=== PATIENT | female | born 2000 | race Caucasian/White ===

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

== ENCOUNTER 2022-02-08 22:00 | Outpatient (CLI) | payer MEDICAID, SELFPAY ==
[2022-02-08 22:16] VITALS: BP 126/71; PULSE 93; TEMP 36.2; O2SAT 97
[2022-02-08 22:21] VITALS: BMI 30.9
--- NOTE | 2022-02-12 19:20 | OB.TRI.PN ---
Progress Notes Progress Note: 21 year old female at 36w3d presents for vaginal bleeding. Assessment & Plan (1) Vaginal bleeding: (2) False labor: PLAN: Plan 1) No signs of labor 2) Reactive NST 3) D/C home
== END 2022-02-08 22:45 | disposition home or self-care (01) ==
LOC: WPOUT 22:01 → WP 22:02
PROVIDERS: PCP Pediatrics; Visit Provider Advanced Practice Midwife
DX: O47.03 False labor before 37 completed weeks of gestation, third trimester (principal); Z3A.36 36 weeks gestation of pregnancy; O46.93 Antepartum hemorrhage, unspecified, third trimester
CPT/HCPCS: 59025; 59050; 99218; G0378

== ENCOUNTER 2022-02-12 09:15 | Inpatient (IN) | payer MEDICAID, SELFPAY ==
[2022-02-12] VITALS (82 sets, daily range): BP systolic 109–146; BP diastolic 55–86; PULSE 70–193; RESP 16; TEMP 36.6–37.7; O2SAT 83–100; BMI 30.9
[2022-02-12] MEDS: Lactated Ringers 1,000 ML 200 ML IV (09:30)
[2022-02-12 10:02] LABS: Absolute Lymphocyte Count 2.45 X10^3/uL (0.83-4.51); Absolute Neutrophil Count 11.4 X10^3/uL (2.0-7.7); Basophil# 0.04 X10^3/uL; Basophil% 0.3 % (0-1); Eosinophil# 0.06 X10^3/uL; Eosinophils% 0.4 % (0-5); Hemoglobin 12.4 g/dL (12.0-15.0); Lymphocyte # 2.45 X10^3/ul (0.83-4.51); Lymphocyte % 16.2 % (19-41); Mean Corp Hgb Conc 33.5 g/dL (32-36); Mean Corpuscular Volume 86.4 fL (81-99); Mean Platelet Vol. 8.4 fl (6.2-12.0); Monocyte% 7.3 % (0-10); NRBC Flagged by Analyzer 0 % (0-5); Neutrophil # 11.37 X10^3/uL (2.7-7.7); Neutrophil % 75.1 % (47-70); Platelet Count 260 K/mm3 (150-450); RBC Distribution Width SD 40.2 fl (35.1-43.9); Red Blood Count 4.28 M/mm3 (4.2-5.4); White Blood Count 15.1 K/mm3 (4.4-11.0)
[2022-02-12] MEDS: LACTATED RINGERS 500 ML 999 ML IV (10:15)
[2022-02-12] MEDS: fentaNYL-bupivacaine (epidural) 100 ML BAG EPIDURAL (10:57)
--- NOTE | 2022-02-12 11:17 | PCM.HP.OB ---
HPI - General General Date of Admission: 02/12/22 HPI Narrative GERTRUDE BALES, is a 21 F who presents presents at 37 weeks in active labor. Maternal Data Information Final RAMU: 03/05/22 [facility] Medical History Back pain Fatigue Fever Migraines Severe headache Urinary tract infection with hematuria Home Medications drospirenone 3 mg-ethinyl estradiol 0.02 mg tablet (FARHAD (28)) 1 tab PO DAILY 01/04/19 [History Last Taken Unknown] eletriptan 20 mg tablet PO 01/04/19 [History Last Taken Unknown] naproxen 250 mg tablet 250 mg PO BID PRN 01/04/19 [History Last Taken Unknown] ferrous fumarate 55 mg (18 mg iron) tablet,extended release 65 mg PO DAILY 02/08/22 [History Last Taken Unknown] wglkffox-mcn-Sa-FA 1 mg tablet 1 tab PO DAILY 02/08/22 [History Last Taken Unknown] Allergy/AdvReac Type Severity Reaction Status Date / Time No Known Allergies Allergy Verified 02/08/22 22:22 Social History Smoking Status: Former smoker alcohol intake: never History Elective abortions Hx Para 0 Spontaneous abortions Hx # Term Pregnancies Ectopic pregnancies Hx # Pregnancies Multiple births # of living children NST FHR Rate Baby A Baseline: 145 Variability:: Moderate Accelerations:: 15 x 15 Decelerations:: None FHR Category:: Category I Uterine Activity:: ever 2-4 minutes ROS Constitutional Constitutional: Reports systems reviewed and no addt'l complaints, except as documented; Denies headache(s) Eyes Eyes: Denies acute decrease in peripheral vision, blurry vision or change in vision ENT HEENT: Reports systems reviewed and no addt'l complaints, except as documented Cardiovascular Cardiovascular: Denies chest pain or dizziness Respiratory/Chest Respiratory/Chest: Denies cough, dyspnea, dyspnea on exertion, shortness of breath at rest or shortness of breath with exertion Gastrointestinal Gastrointestinal: Denies abdominal pain, diarrhea, nausea or vomiting Genitourinary Genitourinary: Denies abdominal discomfort Musculoskeletal Musculoskeletal: Denies limited range of motion Integumentary Integumentary: Reports systems reviewed and no addt'l complaints, except as documented Neurologic Neurologic: Reports systems reviewed and no addt'l complaints, except as documented Psychiatric Psychiatric: Reports systems reviewed and no addt'l complaints, except as documented Endocrine Endocrinology: Reports systems reviewed and no addt'l complaints, except as documented Hematologic/Lymphatic Hematologic/Lymphatic: Reports systems reviewed and no addt'l complaints, except as documented Allergic/Immunologic Allergic/Immunologic: Reports systems reviewed and no addt'l complaints, except as documented Vital Signs Vital Signs Vital Signs: 02/12/22 07:47 02/12/22 07:47 02/12/22 08:00 Temperature Temperature Source Tympanic Pulse Rate 88 Blood Pressure 126/78 H BP Systolic 126 BP Diastolic 78 Pulse Ox 02/12/22 08:00 02/12/22 08:00 02/12/22 08:00 Temperature 97.9 F Temperature Source Pulse Rate 88 Blood Pressure 126/78 H BP Systolic 126 BP Diastolic 78 Pulse Ox 02/12/22 10:41 02/12/22 10:41 02/12/22 10:46 Temperature Temperature Source Pulse Rate 86 Blood Pressure 134/65 H BP Systolic 134 BP Diastolic 65 Pulse Ox 100 02/12/22 10:46 02/12/22 10:46 02/12/22 10:46 Temperature Temperature Source Pulse Rate 85 90 Blood Pressure BP Systolic BP Diastolic Pulse Ox 100 02/12/22 10:50 02/12/22 10:50 02/12/22 10:51 Temperature Temperature Source Pulse Rate 89 88 Blood Pressure 127/75 H BP Systolic 127 BP Diastolic 75 Pulse Ox 02/12/22 10:51 02/12/22 10:56 02/12/22 10:56 Temperature Temperature Source Pulse Rate 86 Blood Pressure BP Systolic BP Diastolic Pulse Ox 100 100 02/12/22 10:57 02/12/22 10:57 02/12/22 10:54 Temperature Temperature Source Pulse Rate 85 Blood Pressure 114/58 L BP Systolic 114 BP Diastolic 58 Pulse Ox 100 02/12/22 11:00 02/12/22 11:00 02/12/22 11:01 Temperature Temperature Source Pulse Rate 85 81 Blood Pressure 113/55 L BP Systolic 113 BP Diastolic 55 Pulse Ox 02/12/22 11:01 02/12/22 11:04 02/12/22 11:06 Temperature Temperature Source Pulse Rate 87 Blood Pressure BP Systolic BP Diastolic Pulse Ox 100 100 02/12/22 11:06 02/12/22 11:08 02/12/22 11:08 Temperature Temperature Source Pulse Rate 84 Blood Pressure 117/59 L BP Systolic 117 BP Diastolic 59 Pulse Ox 100 02/12/22 11:11 02/12/22 11:11 02/12/22 11:13 Temperature Temperature Source Pulse Rate 83 Blood Pressure 116/56 L BP Systolic 116 BP Diastolic 56 Pulse Ox 100 02/12/22 11:13 02/12/22 11:15 02/12/22 11:15 Temperature Temperature Source Pulse Rate 81 88 Blood Pressure BP Systolic BP Diastolic Pulse Ox 88 02/12/22 11:16 02/12/22 11:16 Temperature Temperature Source Pulse Rate 96 Blood Pressure BP Systolic BP Diastolic Pulse Ox 100 Weight Weight: 158 lb 6 oz Body Mass Index (BMI) 30.9 Physical Exam Const alert and oriented x3 General Appearance: cooperative Orientation / Consciousness: awake, oriented to person, oriented to place and oriented to time Exam Limitations: no limitations HEENT normocephalic Head and Scalp: normal to inspection, normocephalic and atraumatic Face and Sinus: normal facial exam Eyes General Eye: normal appearance of both eyes Neck full ROM Chest Chest: symmetrical chest wall rise Resp normal respiratory effort and normal air movement Auscultation: clear to auscultation bilaterally Cardio regular rate, regular rhythm, S1 normal heart sound, S2 normal heart sound, no murmurs, no rub, no gallops and no clicks GI normal to inspection, nondistended, normoactive bowel sounds and non-tender appearance of the vagina normal Narrative: 50cm/80%/-1 station per nursing exam, BBOW Bladder / Kidney Exam: no CVA tenderness Back/Spine normal ROM Extremity normal to inspection and full ROM Skin no rashes or lesions noted Neuro oriented x3, CN's II-XII intact bilaterally and moves all extremities Sensorium / Orientation: awake, alert and oriented to person Motor Exam: clonus absent Deep Tendon Reflexes: Rt Patellar (L4): 2+ and Lt Patellar (L4): 2+ Labs Labs Labs: Blood Type A POSITIVE Antibody Screen NEGATIVE Hct 37.0 % (37-47) Hgb 12.4 g/dL (12.0-15.0) Chlamydia DNA (JACQUELINE) Negative (Negative) Neisseria gonorrhoeae DNA (JACQUELINE) Negative (Negative) RPR negative Rubella Immune HIV negative HBsAG negative HepC negative GBS unknown Assessment & Plan (1) Active labor at term: (2) Vaginal laceration: PLAN: Plan 1) Admit to labor and delivery 2) Routine labs 3) GBS unknown, no results and no treatment indicated per cdc guidelines 4) Epidural for pain management 5) collaborative physician and notified of patient status.
--- NOTE | 2022-02-12 14:53 | EX.PCM.OBRPT ---
Assessment & Plan (1) Vaginal laceration: (2) Vaginal delivery: Maternal Data Information Final RAMU: 03/05/22 Gestational age: 37 weeks Vaginal Delivery Maternal Presentation Maternal Presentation: Active Labor Maternal Presentation: Active labor at term Operative Information Date of Procedure: 02/12/22 Pre-Operative Diagnosis: Active labor at term Post-Operative Diagnosis: , vaginal laceration Surgery / Procedure Performed: Spontaneous Vaginal Delivery Type of Anesthesia: Epidural Estimated Blood Loss: 300 ml Time of Delivery: 14:28 Findings Description of Procedure: Progressed to complete with pressure. Rapid delivery of viable female infant delivered by KELSEY Faust precipitously. of viable female over left vaginal laceration. APGARS 8,9. Arrived one minute after delivery. Strong cry, Mouth and nares suctioned for secretions. Pitocin started for active 3rd stage management. Cord doubly clamped and cut by FOB after pulsations ceased, delayed cord clamping. Placenta delivered intact via ann, 3 vessel cord intact. Perineum inspected and revealed left vaginal side wall laceration. Repaired with 3.0 vicryl rapide and lidocaine. Fundus firm and hemostasis achieved. EBL 300ml. Mom and baby stable, planning to Bresatfeed. Family bonding well. notified of delivery. Presentation: Vertex Amniotic Membrane Rupture Type: Artificial Amniotic Fluid Description: Clear Placental Delivery Description: Spontaneous Placenta Disposition: [facility] Cord Vessel Description: 3 Vessels Cord Entanglement: None Infant A Gender: Female (1 minute): 8 (5 minute): 9 Delayed Cord Clamping: Yes Post Vaginal Delivery Episiotomy Description: None Laceration: Vaginal Extension/lac Complication Complications: None
[2022-02-12] MEDS: Ibuprofen 600 MG Tablet PO (18:28)
[2022-02-13] MEDS: Acetaminophen 500 MG Tablet 1000 MG PO ×2 (02:50→15:33)
[2022-02-13 03:10] VITALS: BP 115/64; PULSE 84; RESP 16; TEMP 36.9; O2SAT 97
[2022-02-13 06:05] LABS: Hematocrit 32.3 % (37-47); Hemoglobin 10.6 g/dL (12.0-15.0); Mean Corp Hgb Conc 32.8 g/dL (32-36); Mean Corpuscular Hgb 28.6 pg (27.0-32.0); Mean Corpuscular Volume 87.1 fL (81-99); Mean Platelet Vol. 8.4 fl (6.2-12.0); Platelet Count 227 K/mm3 (150-450); RBC Distribution Width CV 12.9 % (11.6-14.6); RBC Distribution Width SD 40.8 fl (35.1-43.9); Red Blood Count 3.71 M/mm3 (4.2-5.4); White Blood Count 15.2 K/mm3 (4.4-11.0)
--- NOTE | 2022-02-13 08:53 | PCM.PN.OB ---
Subjective Subjective Patient seen at bedside. Resting comfortably. Ambulating and voiding without difficulty. with support. Expressing and feeding via spoon. Denies any pain. Objective Data Objective Data Vital Signs: Vital Signs Temp Pulse Resp BP Pulse Ox O2 Del Method 98.5 F 84 16 115/64 97 Room Air 02/13/22 03:10 02/13/22 03:10 02/13/22 03:10 02/13/22 03:10 02/13/22 03:10 02/13/22 03:10 Oxygen Delivery Method Room Air Weight: 158 lb 6 oz Body Mass Index (BMI) 30.9 Intake & Output: Intake and Output for Last 24 Hours 02/11/22 02/12/22 02/13/22 23:59 23:59 23:59 Intake Total 1500 / 1500 Output Total 1850 / 1850 Balance -350 / -350 Lab / Micro Data Result Diagrams: 02/13/22 05:30 Labs: Laboratory Results - last 24 hr 02/12/22 09:30: WBC 15.1 H, RBC 4.28, Hgb 12.4, Hct 37.0, MCV 86.4, MCH 29.0, MCHC 33.5, RDW Std Deviation 40.2, RDW Coeff of Yolanda 13.0, Plt Count 260, MPV 8.4, Immature Gran % (Auto) 0.700, Neut % (Auto) 75.1 H, Lymph % (Auto) 16.2 L, Beltrami % (Auto) 7.3, Eos % (Auto) 0.4, Baso % (Auto) 0.3, Absolute Neuts (auto) 11.4 H, Absolute Lymphs (auto) 2.45, Nucleated RBC % 0 02/12/22 09:30: Blood Type A POSITIVE, Antibody Screen NEGATIVE 02/13/22 05:30: WBC 15.2 H, RBC 3.71 L, Hgb 10.6 L, Hct 32.3 L, MCV 87.1, MCH 28.6, MCHC 32.8, RDW Std Deviation 40.8, RDW Coeff of Yolanda 12.9, Plt Count 227, MPV 8.4 Micro: Microbiology 02/12/22 09:30 Nasal Secretion SARS-CoV-2 Antigen (Rapid) - Final ROS Eyes Eyes: Denies blurry vision, change in vision or spots in vision ENT HEENT: Denies dizziness or headache(s) Cardiovascular Cardiovascular: Denies abdominal pain, chest pain or dyspnea Respiratory/Chest Respiratory/Chest: Denies cough, dyspnea, shortness of breath at rest or shortness of breath with exertion Gastrointestinal Gastrointestinal: Denies abdominal pain, diarrhea or vomiting Genitourinary Genitourinary: Denies change in urinary stream, difficulty urinating or dysuria Musculoskeletal Musculoskeletal: Reports none Integumentary Integumentary: Denies rash Neurologic Neurologic: Denies dizziness, headache(s), memory loss or weakness Physical Exam Const alert and no apparent distress General Appearance: cooperative and comfortable Exam Limitations: no limitations HEENT normocephalic Eyes General Eye: normal appearance of both eyes Neck full ROM General: normal visual inspection Chest Chest: symmetrical chest wall rise Resp normal respiratory effort and normal air movement Effort and Inspection: symmetric chest movement Auscultation: clear to auscultation bilaterally Cardio regular rate and regular rhythm GI normal to inspection, nondistended, normoactive bowel sounds Back/Spine normal ROM Extremity full ROM and no calf tenderness General Extremity: normal exam except as noted Skin no rashes or lesions noted Neuro CN's II-XII intact bilaterally Psych mental status grossly normal Assessment & Plan (1) Vaginal delivery: (2) Care and examination of lactating mother: PLAN: Plan PP Day 1 Routine care Breast feeding support Pain control Anticipate discharge home tomorrow
[2022-02-13 09:01] VITALS: BP 118/68; PULSE 73; RESP 16; TEMP 36.8; O2SAT 98
[2022-02-13] MEDS: Benzocaine/Lanolin/Aloe Vera 1 SPRAY EACH TOPICAL (09:16)
--- NOTE | 2022-02-13 09:30 | NURSING ---
edema noted on labia minor due to first degree left labial laceration
[2022-02-13 11:47] VITALS: BP 127/75; PULSE 93; RESP 16; TEMP 36.4; O2SAT 97
[2022-02-13] MEDS: Ibuprofen 600 MG Tablet PO ×2 (12:00→22:25)
[2022-02-13 15:21] VITALS: BP 120/68; PULSE 90; RESP 16; TEMP 36.7; O2SAT 96
--- NOTE | 2022-02-13 19:51 | NURSING ---
pt states that she is unable to urinate, that she is getting uncomfortable and requests that she be straight cathed. pt states that she had issues peeing with her previous c-sections as well
[2022-02-13 19:58] VITALS: BP 134/67; PULSE 93; RESP 16; TEMP 36.7
[2022-02-14 02:20] VITALS: BP 130/79; PULSE 91; RESP 16; TEMP 36.7
--- NOTE | 2022-02-14 06:10 | PCM.PN.OB ---
Subjective Subjective Patient seen at bedside. Feeling good. Denies any pain. Ambulating and voiding without difficulty. . Desires discharge home. Objective Data Objective Data Vital Signs: Vital Signs Temp Pulse Resp BP Pulse Ox O2 Del Method 98.0 F 91 16 130/79 H 96 Room Air 02/14/22 02:20 02/14/22 02:20 02/14/22 02:20 02/14/22 02:20 02/13/22 15:21 02/14/22 02:20 Oxygen Delivery Method Room Air Weight: 158 lb 6 oz Body Mass Index (BMI) 30.9 Intake & Output: Intake and Output for Last 24 Hours 02/12/22 02/13/22 02/14/22 23:59 23:59 23:59 Intake Total 1500 / 1500 Output Total 1850 / 1850 Balance -350 / -350 Lab / Micro Data Result Diagrams: 02/13/22 05:30 Micro: Microbiology 02/12/22 09:30 Nasal Secretion SARS-CoV-2 Antigen (Rapid) - Final ROS Eyes Eyes: Denies blurry vision, change in vision or spots in vision ENT HEENT: Denies dizziness or headache(s) Cardiovascular Cardiovascular: Denies abdominal pain, chest pain or dyspnea Respiratory/Chest Respiratory/Chest: Denies cough, dyspnea, shortness of breath at rest or shortness of breath with exertion Gastrointestinal Gastrointestinal: Denies abdominal pain, diarrhea or vomiting Genitourinary Genitourinary: Denies change in urinary stream, difficulty urinating or dysuria Musculoskeletal Musculoskeletal: Reports none Integumentary Integumentary: Denies rash Neurologic Neurologic: Denies dizziness, headache(s), memory loss or weakness Physical Exam Const alert and no apparent distress General Appearance: cooperative and comfortable Exam Limitations: no limitations HEENT normocephalic Eyes General Eye: normal appearance of both eyes Neck full ROM General: normal visual inspection Chest Chest: symmetrical chest wall rise Resp normal respiratory effort and normal air movement Effort and Inspection: symmetric chest movement Auscultation: clear to auscultation bilaterally Cardio regular rate and regular rhythm GI normal to inspection, nondistended, normoactive bowel sounds Back/Spine normal ROM Extremity full ROM and no calf tenderness General Extremity: normal exam except as noted Skin no rashes or lesions noted Neuro CN's II-XII intact bilaterally Psych mental status grossly normal Assessment & Plan (1) Care and examination of lactating mother: (2) Vaginal delivery: PLAN: Plan PPD 2 Routine care support D/C home with follow up in office
--- NOTE | 2022-02-14 06:12 | DCINST_ITS ---
Discharge Instructions Diet Discharge Diet: No restrictions Activity Discharge Activity: Return to Normal Activity, May Shower and May Take a Tub Bath May resume sexual activity in: 4-6 weeks Weight Bearing Status: Weight bearing as tolerated Dressing / Incision Call your doctor if you observe: Inability to urinate, Using more than 1 pad per hour, Shortness of breath, Dizziness, Swelling in the ankles, Chest pain, Calf discomfort and Uncontrolled pain Follow Up Care When: Within 14 days for post visit Test Results: Test results from this visit will be discussed in further detail at your follow- up appointment, if applicable. Discharge Plan Admission Admit Date/Time: 02/12/22 09:15 Primary Reason for Your Visit: Labor and delivery Attending Provider: Agustina Ernst Primary Care Provider: Shelley Deal Discharge Orders/Prescriptions Prescriptions: Continued udzvarll-tuc-Cv-FA 1 mg Tablet 1 tab PO DAILY Discontinued drospirenone-ethinyl estradiol [FARHAD (28)] 3-0.02 mg tablet 1 tab PO DAILY naproxen 250 mg tablet 250 mg PO BID PRN eletriptan 20 mg tablet PO ferrous fumarate 55 mg (18 mg iron) Tablet Extended Release 65 mg PO DAILY Referrals / Follow Up: Shelley Deal MD [Primary Care Provider] - Disposition Disposition (needs filled in before D/C Order can be placed): Home, Self Care
[2022-02-14 08:11] VITALS: BP 125/73; PULSE 84; RESP 16; TEMP 36.7
[2022-02-14 15:12] VITALS: BP 136/77; PULSE 100; RESP 17; TEMP 36.9
== END 2022-02-14 16:40 | disposition home or self-care (01) | DRG 560 ==
LOC: WPOUT 09:19 → WP 09:19
PROVIDERS: Admitting Provider Advanced Practice Midwife; PCP Pediatrics; Referring Provider Advanced Practice Midwife; Visit Provider Advanced Practice Midwife
DX: O62.3 Precipitate labor (principal); Z37.0 Single live birth; O71.4 Obstetric high vaginal laceration alone; Z87.891 Personal history of nicotine dependence; Z3A.37 37 weeks gestation of pregnancy
CPT/HCPCS: 59025; 59050; 85025; 85027; 86850; 86900; 86901; 87426; 99218; J7120; G0378

== ENCOUNTER 2022-03-26 03:30 | Emergency (ER) | payer MEDICAID, SELFPAY ==
[2022-03-26 03:30] VITALS: BP 139/89; PULSE 88; RESP 19; TEMP 36.6; BMI 27.9
--- NOTE | 2022-03-26 03:52 | EX.ED.VIS.UR ---
HPI HPI - URI History of Present Illness Chief Complaint: Cold Sx Informant: patient Onset/Context/Timing Onset: Days (2) Context: Gradual Onset Timing: Continuous Quality: Congested Location: Chest and upper airways Worsened by: - (Nothing) Relieved by: - (Nothing) Associated Symptoms Associated Symptoms: Positive for Nasal Congestion, Headache, Myalgias, Nausea and Nonproductive cough; Negative for Sinus Pressure, Vomiting, Diarrhea, Shortness of Breath, Chest Pain, Hemoptysis or Productive Cough Narrative Narrative: Presents with cough and congestion that has been getting worse over the last 2 days. Patient states her fever was up to 103 at home. Patient states it broke just before she came to the emergency department tonight. Patient states she has been having some congestion and rhinorrhea. Patient admits to a cough but denies any sputum production. Patient admits to decreased appetite. Patient also admits to mild headache and myalgias. ROS ROS ED Constitutional Constitutional ED: Reports fever(s); Denies chills Eyes Eyes: Reports blurry vision; Denies change in vision ENT ENT ED: Reports rhinorrhea; Denies sore throat Cardiovascular Cardiovascular: Denies chest pain or palpitations Respiratory/Chest Respiratory/Chest: Reports cough; Denies dyspnea Gastrointestinal Gastrointestinal: Reports nausea; Denies vomiting Genitourinary Genitourinary ED: Denies dysuria or hematuria Musculoskeletal Musculoskeletal: Denies back pain or neck pain Integumentary Denies abscess or rash Neurologic Neurologic: Reports headache(s); Denies weakness Allergic/Immunologic Allergic/Immunologic ED: Denies mouth swelling or urticaria [facility] Medical History Active labor at term Back pain Care and examination of lactating mother Fatigue Fever Migraines Severe headache Urinary tract infection with hematuria Vaginal delivery Vaginal laceration Home Medications vwkfzujv-qfc-Cg-FA 1 mg tablet 1 tab PO DAILY 02/08/22 [History Last Taken Unknown] oseltamivir 75 mg capsule 75 mg PO BID #10 CAPSULES 03/26/22 [Rx Last Taken Unknown] Allergy/AdvReac Type Severity Reaction Status Date / Time No Known Allergies Allergy Verified 02/08/22 22:22 Surgical History no surgical history no surgical history Social History Smoking Status: Light Smoker (<10/day) alcohol intake: never EXAM Physical Exam Const Vital Signs: 03/26/22 03:30 03/26/22 03:30 Temperature 97.9 F Temperature Source Oral Pulse Rate 88 Respiratory Rate 19 H Respiratory Effort Normal Non-Labored Respiratory Pattern Normal Blood Pressure 139/89 H Blood Pressure Mean 105 Oxygen Delivery Method Room Air Positive well nourished and well developed General Appearance ED: well developed HEENT Reports moist mucous membranes Neck supple and no JVD Resp normal respiratory effort and clear to auscultation bilaterally Cardio regular rate, regular rhythm and no murmurs GI normal to inspection, nondistended, normoactive bowel sounds and non-tender Palpation: soft Extremity normal to inspection General Extremety ED: Negative for edema or tenderness General Extremity: Negative for edema Neuro oriented x3, CN's II-XII intact bilaterally and no sensory deficits noted Sensorium / Orientation: alert Motor Exam: strength 5/5 throughout Psych mental status grossly normal Skin no rashes or lesions noted MDM MDM MDM Narrative Medical decision making narrative: PA and lateral chest x-ray was obtained. There are 2 views. On my interpretation, lung durham are clear. There is normal cardiac silhouette. Bony thorax is normal. There is no acute process noted. Radiologist also interpreted the x-ray and agrees. COVID-19 rapid antigen was obtained and was negative. Influenza A and influenza B rapid antigens were obtained and was positive for influenza A. Patient was advised of her findings. Patient was instructed to drink plenty of fluids. Patient was instructed to take Tylenol or ibuprofen as needed for pain or fevers. Patient was instructed to follow-up with her primary care physician in 5 to 7 days. Patient understood and was agreeable with plan. All questions were answered. Lab Data Attestation: I reviewed the patient's lab results. Radiography Chest X-Ray - ED: 2 View, Read by ED Physician, Read by Radiologist and No Acute Disease Diagnostic Testing: Clinical Impression(s) from Imaging Studies Chest X-Ray 03/26/22 03:55 IMPRESSION: No radiographic evidence of acute cardiopulmonary disease. Electronically Signed: Mundo Rdz MD at 4:25 EST , Discharge Plan Triage Chief Complaint: Cold Sx ED Provider: Ruiz Swain Dx/Rx/DC Orders Clinical Impression: Influenza A, Viral upper respiratory infection Instructions: ED Influenza (Adult) Prescriptions: New oseltamivir [oseltamivir] 75 mg capsule 75 mg PO BID Qty: 10 0RF No Action bgpgeony-jvs-Vg-FA 1 mg Tablet 1 tab PO DAILY Primary Care Provider: Care Physician,No Primary Referrals: NOT,DEFINED [Non-Staff] - 5-7 Days Disposition Disposition: Home, Self Care
--- NOTE | 2022-03-26 03:55 | RAD_ITS ---
EXAM: XR CHEST, 2 VIEWS CLINICAL INDICATION: Cough Cough TECHNIQUE: Frontal and lateral views of the chest. This report was created using [employer] report generation technology. COMPARISON: None. FINDINGS: LUNGS AND PLEURAL SPACES: Unremarkable. No consolidation or edema. No pneumothorax. No effusion. HEART: Unremarkable. Cardiac silhouette not enlarged. MEDIASTINUM: Central airways and mediastinal contour are unremarkable. BONES/JOINTS: Unremarkable. SOFT TISSUES: Unremarkable. RAD/Chest PA and Lateral IMPRESSION: No radiographic evidence of acute cardiopulmonary disease. Electronically Signed: Mundo Rdz MD at 4:25 EST Reading Location ID and State: [facility] / [place] , Service support ,
== END 2022-03-26 06:15 | disposition home or self-care (01) ==
PROVIDERS: Emergency Provider Emergency Medicine; Visit Provider Emergency Medicine
DX: J10.1 Influenza due to other identified influenza virus with other respiratory manifestations (principal); F17.200 Nicotine dependence, unspecified, uncomplicated
CPT/HCPCS: 71046; 87428; 99282

== ENCOUNTER 2025-02-13 15:00 | Outpatient (CLI) | payer MEDICAID, SELFPAY ==
[2025-02-13 15:17] VITALS: BP 130/75; PULSE 100; O2SAT 100
[2025-02-13 15:18] VITALS: RESP 14; TEMP 36.7; O2SAT 99
[2025-02-13 15:53] VITALS: BP 116/58; PULSE 86
[2025-02-13 16:13] LABS: Color, Urine Yellow (Yellow); Glucose, Dipstick Normal (Normal); Ketone-Dipstick Negative (Negative); Leukocyte Esterase-Dipstick Negative /ul (Negative); Nitrite-Dipstick Negative (Negative); Occult Blood-Urine Negative /ul (Negative); Protein-Dipstick Negative (Negative); Specific Gravity, Urine 1.005 (1.002-1.030); Urine Bilirubin Dipstick Negative (Negative)
[2025-02-13 16:23] VITALS: BP 108/57; PULSE 85
--- NOTE | 2025-02-13 17:09 | OB.TRI.NOTE ---
HPI - General General Date of Service: 02/13/25 HPI Narrative GERTRUDE BALES, is a 24 F @ 23.5 weeks who presents c/o pelvic pressure- no vaginal bleeding or lof. was seen in office today with same complaints- cervix closed and thick. reports pressure is better when lifts up her abdomen. no dysuria. PFSH PFSH Medical History Active labor at term Back pain Care and examination of lactating mother Fatigue Fever Migraines Severe headache Urinary tract infection with hematuria Vaginal delivery Vaginal laceration Home Medications ?Medication ?Instructions ?Recorded ?Last Taken ?Type hhzdoehi-zrj-Ng-FA 1 mg 1 tab PO DAILY 02/08/22 Unknown History tablet oseltamivir 75 mg capsule 75 mg PO BID #10 CAPSULES 03/26/22 Unknown Rx Allergy/AdvReac Type Severity Reaction Status Date / Time No Known Allergies Allergy Verified 02/08/22 22:22 Social History Smoking Status: Light Smoker (<10/day) alcohol intake: never History Elective abortions Hx Para 0 Spontaneous abortions Hx # Term Pregnancies Ectopic pregnancies Hx # Pregnancies Multiple births # of living children Physical Exam Narrative abd: soft, non tender cervix: closed/thick/high Const alert and oriented x3 General Appearance: cooperative HEENT normocephalic GI GI Narrative: Gravid, non tender to palpation. OB / External & Speculum: external exam normal Extremity normal to inspection Skin no rashes or lesions noted Neuro oriented x3 and CN's II-XII intact bilaterally Psych Appearance: grossly normal NST FHR Rate Baby A Baseline: 150 Variability:: Moderate Accelerations:: 10 x 10 NST Reactive:: Yes FHR Category:: Category I Uterine Activity:: no ctx Assessment & Plan (1) False labor: (2) 23 weeks gestation of : PLAN: Plan @ 23 weeks- vaginal pressure- false labor 1) cervix thick and closed. no ctx- well being established 2) UA negative 3) recommend maternity belt 4) s/sx labor reviewed and when to return to l&D
[2025-02-13 19:45] LABS: Color, Urine Amber (Yellow); Glucose, Dipstick Normal (Normal); Ketone-Dipstick Negative (Negative); Leukocyte Esterase-Dipstick 25 /ul (Negative); Nitrite-Dipstick Negative (Negative); Occult Blood-Urine 250 /ul (Negative); Protein-Dipstick 30 mg/dl (Negative); Specific Gravity, Urine 1.010 (1.002-1.030); Urine Bilirubin Dipstick Negative (Negative)
== END 2025-02-13 16:40 | disposition home or self-care (01) ==
LOC: WPOUT 15:07 → WP 15:07
PROVIDERS: Referring Provider Obstetrics & Gynecology; Visit Provider Obstetrics & Gynecology
DX: O47.02 False labor before 37 completed weeks of gestation, second trimester (principal); O99.332 Smoking (tobacco) complicating pregnancy, second trimester; F17.200 Nicotine dependence, unspecified, uncomplicated; Z3A.23 23 weeks gestation of pregnancy
CPT/HCPCS: 59025; 59050; 81002; 99221; G0378